=== PATIENT | male | born 1975 | race Caucasian/White ===

== ENCOUNTER 2017-04-25 08:06 | Day surgery (SDC) | payer OTHER ==
[~2017-04-25 08:06] MED LIST: ACETAMINOPHEN 500 MG TABLET PO PRN; HYDROmorphone HCL 2 MG/ML VIAL IV PRN; MAG HYDROX/ALUMINUM HYD/SIMETH 30 ML UDC PO PRN; MAGNESIUM HYDROXIDE 30 ML UDC PO PRN; ONDANSETRON HCL/PF 2 MG/ML VIAL IV PRN; PROMETHAZINE HCL 25 MG in DEXTROSE 5 % IN WATER 50 ML IV PRN; RINGER'S SOLUTION,LACTATED 1,000 ML IV PRN; ROPIVACAINE HCL/PF 40 MG in NORMAL SALINE 16 ML IJ PRN; ZOLPIDEM TARTRATE 5 MG TABLET PO PRN; ceFAZolin SODIUM 1 GM VIAL IV PRN; diphenhydrAMINE HCL 50 MG/ML VIAL IV PRN; oxyCODONE HCL/ACETAMINOPHEN 1 TAB TABLET PO PRN
[2017-04-25] MEDS ORDERED: RINGER'S SOLUTION,LACTATED 1,000 ML IV ONE (08:30)
[2017-04-25] MEDS ORDERED: BUPIVACAINE HCL/EPINEPHRINE 10 ML VIAL IJ ONE (09:30)
--- NOTE | 2017-04-25 10:23 | OR ---
Operative Report - Dictated Report Narrative: Date: 04/25/2017 Physician: Yobani Mazariegos M.D. It Administrator: Domingo Mendoza PA-C Preoperative diagnosis: Right Knee medial and lateral meniscus tear Postoperative diagnosis: Right Knee medial and lateral meniscus tear, chronic anterior cruciate ligament tear Procedure: Right knee arthroscopy with partial medial and lateral meniscectomy, debridement of anterior cruciate ligament stump Anesthesia: MAC Plus local Complications: None Estimated blood loss: Minimal Tourniquet time: None Specimens: None Retained implants: None Drains: None Indications: Mr. Lopez Is a 41 year-old gentleman who has been followed in my clinic with complaints of knee pain consistent with suspected medial and lateral joint pathology. Physical exam and diagnostic imaging were consistent with these complaints and concern for medial and lateral meniscus pathology. Conservative measures have failed including, but not limited to, passage of time , activity modification, medications, and injections. The risks, benefits, and alternatives were discussed in clinic. The risks being , bleeding, infection, blood clots, nerve, tendon, ligament, blood vessel injury, persistent pain, arthrosis, need for additional procedures, and persistent symptoms. Consent was obtained in the clinic. Procedure: After marking the correct extremity in the preoperative holding area, a timeout was performed in the operating room. IV antibiotics consisting of Ancef were administered prior to the procedure. A well-padded tourniquet was applied to the operative upper thigh. The leg was prepped and draped in a standard sterile fashion. 0.5% Marcaine with epinephrine was infused into the projected portal sites as well as the intra-articular space. A kristal incision was made for inferior lateral portal. A blunt trocar and cannula was introduced into the knee. The suprapatellar pouch revealed no pathology. The medial patella facet showed grade 1 change. The lateral patella facet showed grade 1 change. The trochlea showed grade 1 change. The medial gutter revealed a small marginal osteophyte. The medial joint space was then entered utilizing a lateral post and valgus stress. A spinal needle was utilized for guidance into placement of an anterior medial portal. This was placed just superior to the medial meniscus ensuring that we could reach the posterior aspect of the medial joint space. A kristal incision was made in the site, and the probe was introduced to the knee. The medial joint space was examined, and the medial femoral condyle showed grade 2 change. The medial tibial plateau showed grade 1 change. The medial meniscus was somewhat shortened appeared to be chronic. There was a small radial tear at the junction of the anterior and middle thirds. The notch was then examined, and the ACL was noted to be absent and there was a large flipped meniscal fragment that at first was difficult to determine if it was from the medial or lateral side but it was determined it was from the posterior lateral meniscus. The PCL was noted to be intact. The lateral joint space was then examined using a varus force in the figure 4 position. Lateral femoral condyle showed grade 1 change. Lateral tibial plateau showed grade 1 change. The lateral meniscus showed a complex tear involving 90% of the depth of the posterior two thirds of the meniscus with a large flipped fragment. The anterior horn was frayed but to a lesser degree torn. The lateral gutter showed a small marginal osteophyte. Having identified the surgical pathology, a series of biters and bneito were utilized in order to debride the radial tear off the anterior medial meniscus. The lateral meniscus was also excised which included nearly all of the posterior two thirds of the meniscus and approximately 50% of the anterior one third. The notch was also debrided of its soft tissues and torn ACL fibers. Once it was felt that we adequately addressed the pathology, the knee was thoroughly irrigated. The fluid was evacuated ensuring that we have removed all meniscal, chondral, and any other loose bodies. A final evaluation of the joint showed no additional pathology. The fluid was then evacuated of the knee, and the trocar and camera were removed from the joint. The wounds were closed with interrupted nylon after placing 20 mL of 0.2% ropivacaine into the joint. Dressings consisting of Xeroform, 4 x 4, ABD, soft roll, and an Armando were applied. All sponge, needle, blade, and instrument counts were correct prior to closing the wounds. The patient was awoken and transferred to the postanesthesia care unit in stable condition.
[2017-04-25 11:31] VITALS: BP 130/70
[2017-04-25] MEDS ORDERED: SENNOSIDES/DOCUSATE SODIUM 1 TAB TABLET PO SCH (21:00)
== END 2017-04-25 08:07 | disposition home or self-care (01) ==
LOC: AMB 08:06
PROVIDERS: ATTEND Orthopaedic Surgery
PROC: 0SBC4ZZ Excision of Right Knee Joint, Percutaneous Endoscopic Approach (ICD-10-PCS; principal; 2017-04-25 09:00)
DX: M23.251 Derangement of posterior horn of lateral meniscus due to old tear or injury, right knee (principal); M23.203 Derangement of unspecified medial meniscus due to old tear or injury, right knee; I10 Essential (primary) hypertension; E78.00 Pure hypercholesterolemia, unspecified; F41.1 Generalized anxiety disorder; E66.9 Obesity, unspecified; Z68.37 Body mass index [BMI] 37.0-37.9, adult